=== PATIENT | female | born 1995 | race Caucasian/White ===

== ENCOUNTER 2022-09-04 22:57 | Emergency (ER) | payer BC ==
[2022-09-04 23:07] VITALS: BP 135/100; PULSE 94; RESP 15; TEMP 98.7
[2022-09-04] MEDS ORDERED: KETOROLAC 15 MG/ML 1 ML VIAL IM STA (23:17)
[2022-09-04] MEDS ORDERED: HYDROmorphone 0.5 MG/0.5 ML SYRINGE IM STA ×2 (23:17→23:58)
--- NOTE | 2022-09-04 23:50 | XR ---
EXAMINATION TYPE: XR tibia fibula RT DATE OF EXAM: 09/04/2022 COMPARISON: None HISTORY: Injury, fall down hill TECHNIQUE: 2 view right tibia and fibula FINDINGS: There are spiral fractures of the distal diaphyseal tibia and fibula. Slight diastases pres ent Ankle mortise and knee joint space appears preserved. No joint effusion at the knee is evident. No ad ditional fractures are evident. IMPRESSION: 1. Spiral fractures distal diaphyseal tibia and fibula with mild diastases
--- NOTE | 2022-09-05 00:49 | ED ---
Lower Extremity Injury HPI - General Chief Complaint: Extremity Injury, Lower Stated Complaint: Right Leg Injury Time Seen by Provider: 09/04/22 23:10 Source: patient, EMS Mode of arrival: EMS - History of Present Illness Initial Comments: Patient is 26-year-old female presents the emergency department for right lower extremity pain. Patient states she fell walking down hill today. She has significant pain in her right lower leg. - Related Data Previous Rx's Medication Instructions Recorded HYDROcodone/APAP 7.5-325MG [[place] 1 tab PO Q4HR PRN #18 tab 09/05/22 7.5-325] Ibuprofen [Motrin] 800 mg PO Q8HR PRN #30 tab 09/05/22 Allergies Allergy/AdvReac Type Severity Reaction Status Date / Time No Known Allergies Allergy Verified 09/04/22 23:24 Review of Systems ROS Statement: Those systems with pertinent positive or pertinent negative responses have been documented in the HPI. ROS Other: All systems not noted in ROS Statement are negative. Past Medical History Past Medical History: Asthma History of Any Multi-Drug Resistant Organisms: None Reported Past Surgical History: No Surgical Hx Reported Past Psychological History: No Psychological Hx Reported Smoking Status: Never smoker Past Alcohol Use History: Occasional Past Drug Use History: None Reported General Exam General appearance: alert, in no apparent distress Head exam: Present: atraumatic, normocephalic, normal inspection Respiratory exam: Present: normal lung sounds bilaterally. Absent: respiratory distress, wheezes, rales, rhonchi, stridor Cardiovascular Exam: Present: regular rate, normal rhythm, normal heart sounds. Absent: systolic murmur, diastolic murmur, rubs, gallop, clicks Right Knee exam: Present: normal inspection, full ROM. Absent: tenderness, swelling Lower Leg exam: Present: tenderness (significant lower leg), swelling (mild lower leg). Absent: full ROM (limited due to pain ) Ankle exam: Present: normal inspection, full ROM. Absent: tenderness, swelling Neurovascular tendon exam: Present: no vascular compromise Neurological exam: Present: alert, oriented X3, CN II-XII intact Psychiatric exam: Present: normal affect, normal mood Skin exam: Present: warm, dry, intact, normal color. Absent: rash Course Vital Signs 09/04/22 22:58 Temperature 98.7 F Pulse Rate 94 Respiratory 15 Rate Blood Pressure 135/100 O2 Sat by Pulse 99 Oximetry Procedures - Orthopedic Splinting/Casting Injury #1 Lower Extremity Injury Location: short leg Lower Extremity Immobilizer: posterior splint, stirrup splint Other Orthopedic Equipment: crutches Medical Decision Making - Medical Decision Making Was pt. sent in by a medical professional or institution ([facility]IL[facility] Perales, GENERAL ASSEMBLER, urgent care, hospital, or intermediate...) When possible be specific @ -No Did you speak to anyone other than the patient for history (EMS, parent, family, police, friend...)? What history was obtained from this source @ -No Did you review nursing and triage notes (agree or disagree)? Why? @ -I reviewed and agree with nursing and triage notes Were old charts reviewed (outside hosp., previous admission, EMS record, old EKG, old radiological studies, urgent care reports/EKG's, intermediate records)? Report findings @ -No old charts were reviewed Differential Diagnosis (chest pain, altered mental status, abdominal pain women, abdominal pain men, vaginal bleeding, weakness, fever, dyspnea, syncope, headache, dizziness, GI bleed, back pain, seizure, CVA, palpatations, mental health)? @ -Fracture, dislocation, contusion, sprain. EKG interpreted by me (3pts min.). @ -As above X-rays interpreted by me (1pt min.). @ -Spiral fractures of the distal diaphyseal tibia and fibula with mild diastases CT interpreted by me (1pt min.). @ -None done U/S interpreted by me (1pt. min.). @ -None done What testing was considered but not performed or refused? (CT, X-rays, U/S, labs)? Why? @ -None What meds were considered but not given or refused? Why? @ -None Did you discuss the management of the patient with other professionals (professionals i.e. PIL[facility] Perales, GENERAL ASSEMBLER, lab, RT, psych nurse, social worker palliative care, screening nurse, teacher, president and chief executive officer, case fitter)? Give summary @ -No Was smoking cessation discussed for >3mins.? @ -No Was critical care preformed (if so, how long)? @ -No Were there social determinants of health that impacted care today? How? (Homelessness, low income, unemployed, alcoholism, drug addiction, transportation, low edu. Level, literacy, decrease access to med. care, intermediate, rehab)? @ -Patient lives in [place]. We heading home on Tuesday. Was there de-escalation of care discussed even if they declined (Discuss DNR or withdrawal of care, Hospice)? DNR status @ -No What co-morbidities impacted this encounter? (DM, HTN, Smoking, COPD, CAD, Cancer, CVA, ARF, Chemo, Hep., AIDS, mental health diagnosis, sleep apnea, morbid obesity)? @ -None Was patient admitted / discharged? Hospital course, mention meds given and route, prescriptions, significant lab abnormalities, going to OR and other pertinent info. @ -Patient has spiral fractures of the distal diaphyseal tibia and fibula. She is neurovascularly intact. She is placed in a posterior stirrup splint. Neurovascularly intact post-splint. Patient actually lives in [place]. She knows of an program specialist she will contact and make an appointment with next week. She will use crutches and she is nonweightbearing. We discussed fracture care in detail. Patient will be discharged with Motrin as well as B[place]bridge for severe pain. Undiagnosed new problem with uncertain prognosis? @ -No Drug Therapy requiring intensive monitoring for toxicity (Heparin, Nitro, Insulin, Cardizem)? @ -No Were any procedures done? @ -yes, splinting Diagnosis/symptom? @ -tibia and fibula fracture Acute, or Chronic, or Acute on Chronic? @ -acute Uncomplicated (without systemic symptoms) or Complicated (systemic symptoms)? @ -uncomplicated Side effects of treatment? @ -No Exacerbation, Progression, or Severe Exacerbation? @ -No Poses a threat to life or bodily function? How? (Chest pain, USA, CT, pneumonia, PE, COPD, DKA, ARF, appy, cholecystitis, CVA, Diverticulitis, Homicidal, Suicidal, threat to staff... and all critical care pts) @ -No Dr. House is my attending Disposition Clinical Impression: Fracture of right tibia and fibula Disposition: HOME SELF-CARE Condition: Good Instructions (If sedation given, give patient instructions): Leg Fracture (ED) Additional Instructions: Rest and elevate the joint as much as possible. Deep splint clean and dry. Use crutches and do not bear weight until orthopedic clearance. Ice the injury for the next 24-48 hours. Take pain medication as directed. You can alternate Tylenol and Motrin every 3-4 hours for pain. Save Bainbridge for severe pain. Do not take B[place]bridge with Tylenol as it has Tylenol in it. Follow-up with program specialist in 1-2 days. Return to the emergency department if you experience new, concerning, or worsening symptoms. Prescriptions: Ibuprofen [Motrin] 800 mg PO Q8HR PRN #30 tab PRN Reason: Pain HYDROcodone/APAP 7.5-325MG [[place] 7.5-325] 1 tab PO Q4HR PRN #18 tab PRN Reason: Pain Is patient prescribed a controlled substance at d/c from ED?: No Referrals: Nonstaff,Physician [Primary Care Provider] - 1-2 days
[2022-09-05] MEDS ORDERED: ACET/COD 300 MG/30 MG STARTER PACK 6 TAB BTL PO STA (01:12)
[2022-09-05] MEDS ORDERED: IBUPROFEN 600 MG STARTER PACK 4 TAB BTL PO STA (01:12)
== END 2022-09-05 16:57 | disposition home or self-care (01) ==
LOC: EC 22:57
DX: S82.241A Displaced spiral fracture of shaft of right tibia, initial encounter for closed fracture (principal); S82.441A Displaced spiral fracture of shaft of right fibula, initial encounter for closed fracture; J45.909 Unspecified asthma, uncomplicated; W01.0XXA Fall on same level from slipping, tripping and stumbling without subsequent striking against object, initial encounter; Y92.828 Other wilderness area as the place of occurrence of the external cause
CPT/HCPCS: 73590; 29515; 99284; 96372 ×3; J1885; J1170 ×2

== ENCOUNTER 2022-09-06 06:43 | Emergency (ER) | payer BC ==
[2022-09-06 06:56] VITALS: PULSE 90; RESP 16
--- NOTE | 2022-09-06 07:43 | XR ---
EXAMINATION TYPE: XR tibia fibula RT DATE OF EXAM: 09/06/2022 COMPARISON: 09/04/2022 HISTORY: Fracture TECHNIQUE: 3 view tibia and fibula FINDINGS: There is a spiral fracture of the distal diaphyseal tibia. There is approximately 25% later al shift of the distal tibial fracture in relation to the proximal tibia. Spiral fracture of the fibu la is present. This is comminuted with slight diastases of a posterior fracture fragment. IMPRESSION: 1. Spiral fractures of the distal diaphyseal tibia and fibula.
[2022-09-06] MEDS ORDERED: KETOROLAC 15 MG/ML 1 ML VIAL IM STA (08:26)
[2022-09-06] MEDS ORDERED: HYDROcodone/APAP 10-325MG 1 EACH TAB PO ONE (08:26)
--- NOTE | 2022-09-06 09:50 | ED ---
Lower Extremity Injury HPI - General Chief Complaint: Extremity Injury, Lower Stated Complaint: Re-evuation of leg injury Time Seen by Provider: 09/06/22 06:46 Source: patient, EMS, RN notes reviewed Mode of arrival: EMS Limitations: no limitations - History of Present Illness Initial Comments: This is a 26-year-old female who presents to the emergency department for right leg pain. Patient was evaluated here yesterday and diagnosed with a spiral fracture of the right tib-fib. She was getting up to use the bathroom this morning, when she lost balance on her crutches and fell. She developed severe pain to the right leg and is concerned that she made the injury worse. She is still planning on returning to [place] tomorrow. Denies hitting her head or sustaining any other injuries. Denies any fevers, chills, sore throat, cough, dyspnea, chest pain, palpitations, abdominal pain, nausea, vomiting, diarrhea, back pain, or headaches. - Related Data Previous Rx's Medication Instructions Recorded HYDROcodone/APAP 7.5-325MG [[place] 1 tab PO Q4HR PRN #18 tab 09/05/22 7.5-325] Ibuprofen [Motrin] 800 mg PO Q8HR PRN #30 tab 09/05/22 Allergies Allergy/AdvReac Type Severity Reaction Status Date / Time No Known Allergies Allergy Verified 09/06/22 06:55 Review of Systems ROS Statement: Those systems with pertinent positive or pertinent negative responses have been documented in the HPI. ROS Other: All systems not noted in ROS Statement are negative. Past Medical History Past Medical History: Asthma History of Any Multi-Drug Resistant Organisms: None Reported Past Surgical History: No Surgical Hx Reported Past Psychological History: No Psychological Hx Reported Smoking Status: Never smoker Past Alcohol Use History: Occasional Past Drug Use History: None Reported General Exam Limitations: no limitations General appearance: alert, in distress Head exam: Present: atraumatic, normocephalic, normal inspection Respiratory exam: Present: normal lung sounds bilaterally. Absent: respiratory distress, wheezes, rales, rhonchi, stridor Cardiovascular Exam: Present: regular rate, normal rhythm, normal heart sounds. Absent: systolic murmur, diastolic murmur, rubs, gallop, clicks Extremities exam: Present: other (Posterior stirrup splint on the right lower extremity is intact. 2+ DP and PT pulses. Capillary refill less than 1 second. Full range of motion of the toes.) Neurological exam: Present: alert, oriented X3, CN II-XII intact Psychiatric exam: Present: normal affect, normal mood Skin exam: Present: warm, dry, intact, normal color. Absent: rash Course Vital Signs 09/06/22 09/06/22 06:53 10:02 Temperature 98.1 F 97.6 F Pulse Rate 90 90 Respiratory 16 16 Rate Blood Pressure 138/86 134/83 O2 Sat by Pulse 97 97 Oximetry Medical Decision Making - Medical Decision Making This is a 26-year-old female who presents to the emergency department for right leg pain after a fall. Was pt. sent in by a medical professional or institution? @ -No Did you speak to anyone other than the patient for history? @ -No Did you review nursing and triage notes? @ -Yes, and I agree, it is accurate with regards to the patient's symptoms. Were old charts reviewed? @ -X-ray of the right tib-fib from 09/05 revealing a spiral tib-fib fracture. Differential Diagnosis? @ -Differential Leg Injury: Contusion, additional fractures, worsening of current fracture, this is not meant to be an all-inclusive list. EKG interpreted by me (3pts min.)? @ -Not obtained X-rays interpreted by me (1pt min.)? @ -X-ray of the right tib/fib obtained. My interpretation identifies a mild increase in displacement of the tibia fracture when compared with 09/05. CT interpreted by me (1pt min.)? @ -Not obtained U/S interpreted by me (1pt. min.)? @ -Not obtained What testing was considered but not performed? (CT, X-rays, U/S, labs)? Why? @ -None What meds were considered but not given? Why? @ -None Did you discuss the management of the patient with other professionals? @ -No Did you reconcile home meds? @ -No Was smoking cessation discussed for >3mins.? @ -No Was critical care preformed (if so, how long)? @ -No Were there social determinants of health that impacted care today? How? (Homelessness, low income, unemployed, alcoholism, drug addiction, transportation, low edu. Level, literacy, decrease access to med. care, longterm, rehab)? @ -No Was there de-escalation of care discussed even if they declined? (Discuss DNR or withdrawal of care, Hospice)? @ -No What co-morbidities impacted this encounter? (DM, HTN, Smoking, COPD, CAD, Cancer, CVA, Hep., AIDS, mental health diagnosis, sleep apnea, morbid obesity)? @ -None Was patient admitted / discharged? @ -Discharged. Repeat x-rays obtained revealing a mild increase in displacement of the tibia fracture. However plan of care from our perspective has not changed and she is still in an appropriate splint and is neurovascularly intact. Patient requested a plaster cast. Advised that this would need to be done at the orthopedic office. I called the front desk administrator at [facility], and they said that they did have open appointments today. Patient called them and made an appointment for 2:45pm today to discuss a cast or other better management options before leaving for [place] tomorrow. She was discharged from the emergency department in stable condition. Undiagnosed new problem with uncertain prognosis? @ -None Drug Therapy requiring intensive monitoring for toxicity (Heparin, Nitro, Insulin, Cardizem)? @ -None Were any procedures done? @ -None Diagnosis/symptom? @ -Right tib/fib fracture Acute, or Chronic, or Acute on Chronic? @ -Acute Uncomplicated (without systemic symptoms) or Complicated (systemic symptoms)? @ -Uncomplicated Side effects of treatment? @ -None Exacerbation, Progression, or Severe Exacerbation] @ -Not applicable Poses a threat to life or bodily function? @ -Yes, this is impacting her ability to ambulate. Return precautions reviewed in depth, the patient is instructed to return to the emergency department with any new, worsening, or concerning symptoms. Patient verbalized understanding. This case was discussed in detail with the attending ED physician, Dr. Herr. Presentation, findings, and treatment plan discussed in detail as well. - Radiology Data Radiology results: report reviewed, image reviewed Disposition Clinical Impression: Spiral fracture of shaft of tibia Disposition: HOME SELF-CARE Instructions (If sedation given, give patient instructions): Leg Fracture (ED), Splint Care (ED) Additional Instructions: Return to the emergency department with any new, worsening, or concerning symptoms. Continue to take your pain medication as needed. Make sure that you go to your appointment at [facility] this afternoon for further evaluation and management. Is patient prescribed a controlled substance at d/c from ED?: No Referrals: Nonstaff,Physician [Primary Care Provider] - 1-2 days
[2022-09-06 10:04] VITALS: BP 134/83; TEMP 97.6
== END 2022-09-06 10:04 | disposition home or self-care (01) ==
LOC: EC 06:43
DX: S82.201A Unspecified fracture of shaft of right tibia, initial encounter for closed fracture (principal); J45.909 Unspecified asthma, uncomplicated; W18.30XA Fall on same level, unspecified, initial encounter
CPT/HCPCS: 99284